=== PATIENT | male | born 1995 | race Two or more races ===

== ENCOUNTER 2016-12-31 15:06 | Inpatient (IN) | payer OTHER ==
[2016-12-31 17:03] VITALS: BMI 22.6
--- NOTE | 2016-12-31 18:54 | HP ---
CIWA Score - CIWA Score Nausea/Vomitin Muscle Tremors: 3 Anxiety: 3 Agitation: 3 Paroxysmal Sweats: 2 Orientation: 0-Oriented Tacttile Disturbances: 2-Mild Itch/Numbness/Burn Auditory Disturbances: 2-Mild Harshness/Frighten Visual Disturbances: 2-Mild Sensitivity Headache: 2-Mild CIWA-Ar Total Score: 22 Admission ROS BHS - HPI Chief Complaint: i need help to stop drinking alcohol and marijuana Allergies/Adverse Reactions: Allergies Allergy/AdvReac Type Severity Reaction Status Date / Time No Known Allergies Allergy Verified 12/31/16 17:10 History of Present Illness: this 21 years old mlae with alcohol and marijuana dependence,seeking help to stop,never been in detox before nicotine dependence insomnia weight loss Exam Limitations: No Limitations - Ebola screening Have you traveled outside of the country in the last 21 days: No Have you been sick,other than usual withdrawal symptoms: No - Review of Systems Constitutional: Loss of Appetite, Malaise, Night Sweats, Changes in sleep, Weakness, Unintentional Wgt. Loss EENT: reports: Nose Congestion Respiratory: reports: No Symptoms reported GI: reports: Nausea, Vomiting, Abdominal cramping : reports: No Symptoms Reported Musculoskeletal: reports: Back Pain, Muscle Pain Integumentary: reports: Dryness Neuro: reports: Headache, Tremors Endocrine: reports: No Symptoms Reported Hematology: reports: No Symptoms Reported Psychiatric: reports: No Sypmtoms Reported (insomnia), Mood/Affect Appropiate, other Patient History - Patient Medical History Hx Anemia: No Hx Asthma: No Hx Chronic Obstructive Pulmonary Disease (COPD): No Hx Cancer: No Hx Cardiac Disorders: No Hx Congestive Heart Failure: No Hx Hypertension: No Hx Hypercholesterolemia: No Hx Pacemaker: No HX Cerebrovascular Accident: No Hx Seizures: No Hx Diabetes: No Hx Gastrointestinal Disorders: No Hx Liver Disease: No Hx Genitourinary Disorders: No Hx Sexually Transmitted Disorders: No Hx Renal Disease (ESRD): No Hx Thyroid Disease: No Hx Human Immunodeficiency Virus (HIV): (never been tested ,would like to be tested) Hx Hepatitis C: No Hx Depression: No Hx Suicide Attempt: No Hx Bipolar Disorder: No Hx Schizophrenia: No Other Medical History: insomnia,no suicidal,no homicidal - Patient Surgical History Past Surgical History: No Hx Neurologic Surgery: No Hx Cataract Extraction: No Hx Cardiac Surgery: No Hx Lung Surgery: No Hx Breast Surgery: No Hx Breast Biopsy: No Hx Abdominal Surgery: No Hx Appendectomy: No Hx Cholecystectomy: No Hx Genitourinary Surgery: No Hx Section: No Hx Orthopedic Surgery: No Anesthesia Reaction: No - PPD History Previous Implant?: Yes Documented Results: Negative w/o proof Implanted On Prior [facility] Admission?: No PPD to be Administered?: Yes - Smoking Cessation Smoking history: Current every day smoker Have you smoked in the past 12 months: Yes Aproximately how many cigarettes per day: 20 Hx Chewing Tobacco Use: No Initiated information on smoking cessation: No 'Breaking Loose' booklet given: 12/31/16 - Substance & Tx. History Hx Alcohol Use: Yes Hx Substance Use: Yes Substance Use Type: Alcohol, Marijuana Hx Substance Use Treatment: No - Substances Abused Alcohol-vodka/beer Route: Oral Frequency: Daily Amount used: 1 pt./3-4 (16 oz.) Age of first use: 16 Date of Last Use: 12/31/16 Marijuana Route: Smoking Frequency: Daily Amount used: $20-30 Age of first use: 14 Date of Last Use: 12/30/16 Family Disease History - Family Disease History Family History: Denies Admission Physical Exam BHS - Vital Signs Vital Signs: Vital Signs - 24 hr 12/31/16 16:59 Temperature 98.2 F Pulse Rate 78 Respiratory 18 Rate Blood Pressure 124/70 - Physical General Appearance: Yes: Moderate Distress, Tremorous, Irritable, Anxious HEENTM: Yes: Normal ENT Inspection, JO, Pharynx Normal Respiratory: Yes: Lungs Clear, Normal Breath Sounds, No Respiratory Distress Neck: Yes: Within Normal Limits, Supple, Trachea in good position Breast: Yes: Within Normal Limits Cardiology: Yes: Within Normal Limits, Regular Rhythm, Regular Rate, S1, S2 Abdominal: Yes: Within Normal Limits, Normal Bowel Sounds, Non Tender, Flat, Soft Genitourinary: Yes: Within Normal Limits Back: Yes: Within Normal Limits, Normal Inspection, Muscle Spasm Musculoskeletal: Yes: Back pain, Muscle Pain Extremities: Yes: Tremors Neurological: Yes: energy economist II-XII NML intact, Fully Oriented, Alert, Motor Strength 5/5 Integumentary: Yes: Dry Lymphatic: Yes: Within Normal Limits - Diagnostic (1) Alcohol dependence with uncomplicated withdrawal Current Visit: Yes Status: Acute (2) Cannabis dependence Current Visit: Yes Status: Acute (3) Insomnia Current Visit: Yes Status: Acute (4) Nicotine dependence Current Visit: Yes Status: Acute Cleared for Admission [facility] - Detox or Rehab [facility] Level of Care: Medically Managed Detox Regimen/Protocol: Librium [facility] Breath Alcohol Content Breath Alcohol Content: 0 Urine Drug Screen - Results Drug Screen Negative: No Urine Drug Screen Results: THC-Marijuana
[2016-12-31] MEDS ORDERED: P-EPHED 60MG/TRIPROLIDI 2.5MG TABLET PO PRN (19:02)
[2016-12-31] MEDS ORDERED: hydrOXYzine PAMOATE 50 MG CAPSULE (FP) PO PRN (19:02)
[2016-12-31] MEDS ORDERED: MAG HYDROX/AL HYDROX/SIMETH 30 ML UNIT-DOSE CUP PO PRN (19:02)
[2016-12-31] MEDS ORDERED: LOPERAMIDE HCL 2 MG CAPSULE PO PRN (19:02)
[2016-12-31] MEDS ORDERED: ACETAMINOPHEN 325 MG TABLET (FP) PO PRN (19:02)
[2016-12-31] MEDS ORDERED: IBUPROFEN 400 MG TABLET (FP) PO PRN (19:02)
[2016-12-31] MEDS ORDERED: guaiFENesin/D-METHORPHAN HB 10 ML UNIT-DOSE CUPS PO PRN (19:02)
[2016-12-31] MEDS ORDERED: MENTHOL/PHENOL 1 EACH UD MM PRN (19:02)
[2016-12-31] MEDS ORDERED: chlordiazePOXIDE HCL 25 MG CAPSULE PO PRN (19:02)
[2016-12-31] MEDS ORDERED: chlordiazePOXIDE HCL 25 MG CAPSULE PO ONE (19:02)
[2016-12-31] MEDS ORDERED: MAGNESIUM HYDROX 2400MG/30ML ORAL SUSPENSION 30 ML CUP PO PRN (19:02)
[2016-12-31] MEDS ORDERED: MAGNESIUM CITRATE 300 ML BOTTLE PO PRN (19:02)
[2016-12-31] MEDS: NICOTINE 21 MG/24 HOURS TOPICAL PATCH TD SCH (20:22)
[2016-12-31] MEDS: chlordiazePOXIDE HCL 25 MG CAPSULE PO SCH (22:17)
[2016-12-31] MEDS: THIAMINE HCL 100 MG TABLET (FP) PO SCH (22:17)
[2016-12-31 23:29] LABS: URINE APPEARANCE CLEAR; URINE BILIRUBIN NEGATIVE (NEGATIVE); URINE BLOOD NEGATIVE (NEGATIVE); URINE COLOR STRAW; URINE GLUCOSE (UA) NEGATIVE (NEGATIVE); URINE KETONE NEGATIVE (NEGATIVE); URINE LEUK ESTERASE NEGATIVE (NEGATIVE); URINE NITRITE NEGATIVE (NEGATIVE); URINE PROTEIN NEGATIVE (NEGATIVE); URINE UROBILINOGEN NEGATIVE mg/dL (0.2-1.0)
[2017-01-01] MEDS: chlordiazePOXIDE HCL 25 MG CAPSULE PO SCH ×4 (05:11→22:09)
--- NOTE | 2017-01-01 08:46 | CONSULT ---
[facility] Psychiatric Consult - Data Date of interview: 01/01/17 Admission source: [facility] Identifying data: This is 21 years old male with no psychiatric hospitalization history intoxicated with: Alcohol and Nicotine Substance Abuse History: Smoking history: Current every day smoker. Have you smoked in the past 12 months: Yes. Aproximately how many cigarettes per day: 20. Hx Chewing Tobacco Use: No. Initiated information on smoking cessation: No. 'Breaking Loose' booklet given: 12/31/16. - Substance & Tx. History. Hx Alcohol Use: Yes. Hx Substance Use: Yes. Substance Use Type: Alcohol, Marijuana. Hx Substance Use Treatment: No. - Substances Abused. Alcohol- vodka/beer. Route: Oral. Frequency: Daily. Amount used: 1 pt./3-4 (16 oz.). Age of first use: 16. Date of Last Use: 12/31/16. Marijuana. Route: Smoking. Frequency: Daily. Amount used: $20-30. Age of first use: 14. Date of Last Use: 12/30/16 Medical History: Denies any significant medical problem Psychiatric History: Denies past psychiatric history Physical/Sexual Abuse/Trauma History: Denies Additional Comment: Observation. Detox Unit Care Protocol Mental Status Exam - Mental Status Exam Alert and Oriented to: Person Cognitive Function: Fair Patient Appearance: Well Groomed Mood: Apprehensive Affect: Mood Congruent Patient Behavior: Cooperative Speech Pattern: Appropriate Voice Loudness: Normal Thought Process: Goal Oriented Thought Disorder: Being Controlled Hallucinations: Denies Suicidal Ideation: Denies Homicidal Ideation: Denies Insight/Judgement: Fair Sleep: Difficulty falling asleep Appetite: Fair Muscle strength/Tone: Normal Gait/Station: Normal Additional Comments: Observation. Detox Unit Care Protocol Psychiatric Findings - Problem List ([place] 1, 2,3) (1) Alcohol dependence with uncomplicated withdrawal Current Visit: Yes Status: Acute (2) Cannabis dependence Current Visit: Yes Status: Acute (3) Insomnia Current Visit: Yes Status: Acute (4) Nicotine dependence Current Visit: Yes Status: Acute (5) Drug-induced mood disorder Current Visit: Yes Status: Suspected - Initial Treatment Plan Initial Treatment Plan: Observation. Detox Unit Care Protocol
[2017-01-01] MEDS: NICOTINE 21 MG/24 HOURS TOPICAL PATCH TD SCH (10:09)
[2017-01-01] MEDS: PRENATAL VITAMINS W/ FOLIC ACID TABLET (FP) PO SCH (10:09)
[2017-01-01 10:14] LABS: MCH 26.4 pg (25.7-33.7); MCHC 32.9 g/dl (32.0-35.9); MEAN CELL VOLUME 80.2 fl (80-96); MEAN PLT VOLUME 8.4 fl (7.5-11.1); PLATELET COUNT 213 K/MM3 (134-434); RDW 14.2 % (11.9-15.9); WHITE BLOOD COUNT 7.9 K/mm3 (4.0-10.0)
[2017-01-01 10:39] LABS: ALBUMIN 3.4 g/dl (3.4-5.0); ANION GAP 9 (8-16); CO2 29 mmol/L (21-32); GLUCOSE,RANDOM 81 mg/dL (74-106)
[2017-01-01 10:44] LABS: ALK PHOS 65 U/L (45-117); BILIRUBIN,TOTAL 0.4 mg/dL (0.2-1.0); CREATININE 0.6 mg/dL (0.7-1.3); SGOT/AST 15 U/L (15-37); SGPT/ALT 22 U/L (12-78); TOT PROT 6.4 g/dl (6.4-8.2)
[2017-01-01 11:28] LABS: HIV 1 & 2 AB NEGATIVE; HIV 1 AGp24 NEGATIVE
--- NOTE | 2017-01-01 12:06 | PN ---
[facility] CIWA - CIWA Score Nausea/Vomitin-No Nausea/No Vomiting Muscle Tremors: 4-Moderate,w/Arms Extend Anxiety: 4-Mod. Anxious/Guarded Agitation: 4-Moderately Restless Paroxysmal Sweats: 1-Minimal Palms Moist Orientation: 0-Oriented Tacttile Disturbances: 3-Moderate Itch/Numb/Burn Auditory Disturbances: 0-None Visual Disturbances: 0-None Headache: 0-None Present CIWA-Ar Total Score: 16 BHS Progress Note (SOAP) Subjective: SLIGHT ANXIETY,SWEATS,TREMORS. Objective: 01/01/17 12:30 Vital Signs Temperature 96.7 F L 01/01/17 09:26 Pulse Rate 96 H 01/01/17 09:26 Respiratory Rate 16 01/01/17 09:26 Blood Pressure 94/67 01/01/17 09:26 O2 Sat by Pulse Oximetry (%) Laboratory Last Values WBC 7.9 K/mm3 (4.0-10.0) 01/01/17 06:30 RBC 5.68 M/mm3 (4.00-5.60) H 01/01/17 06:30 Hgb 15.0 GM/dL (11.7-16.9) 01/01/17 06:30 Hct 45.6 % (35.4-49) 01/01/17 06:30 MCV 80.2 fl (80-96) 01/01/17 06:30 MCH 26.4 pg (25.7-33.7) 01/01/17 06:30 MCHC 32.9 g/dl (32.0-35.9) 01/01/17 06:30 RDW 14.2 % (11.9-15.9) 01/01/17 06:30 Plt Count 213 K/MM3 (134-434) 01/01/17 06:30 MPV 8.4 fl (7.5-11.1) 01/01/17 06:30 Sodium 142 mmol/L (136-145) 01/01/17 06:30 Potassium 3.9 mmol/L (3.5-5.1) 01/01/17 06:30 Chloride 104 mmol/L (98-107) 01/01/17 06:30 Carbon Dioxide 29 mmol/L (21-32) 01/01/17 06:30 Anion Gap 9 (8-16) 01/01/17 06:30 BUN 11 mg/dL (7-18) 01/01/17 06:30 Creatinine 0.6 mg/dL (0.7-1.3) L 01/01/17 06:30 Creat Clearance w eGFR > 60 (>60) 01/01/17 06:30 Random Glucose 81 mg/dL (74-106) 01/01/17 06:30 Calcium 9.0 mg/dL (8.5-10.1) 01/01/17 06:30 Total Bilirubin 0.4 mg/dL (0.2-1.0) 01/01/17 06:30 AST 15 U/L (15-37) 01/01/17 06:30 ALT 22 U/L (12-78) 01/01/17 06:30 Alkaline Phosphatase 65 U/L (45-117) 01/01/17 06:30 Total Protein 6.4 g/dl (6.4-8.2) 01/01/17 06:30 Albumin 3.4 g/dl (3.4-5.0) 01/01/17 06:30 Urine Color Straw 12/31/16 20:00 Urine Appearance Clear 12/31/16 20:00 Urine pH 7.0 (5.0-8.0) 12/31/16 20:00 Ur Specific [place] 1.020 (1.005-1.025) 12/31/16 20:00 Urine Protein Negative (NEGATIVE) 12/31/16 20:00 Urine Glucose (UA) Negative (NEGATIVE) 12/31/16 20:00 Urine Ketones Negative (NEGATIVE) 12/31/16 20:00 Urine Blood Negative (NEGATIVE) 12/31/16 20:00 Urine Nitrite Negative (NEGATIVE) 12/31/16 20:00 Urine Bilirubin Negative (NEGATIVE) 12/31/16 20:00 Urine Urobilinogen Negative mg/dL (0.2-1.0) 12/31/16 20:00 Ur Leukocyte Esterase Negative (NEGATIVE) 12/31/16 20:00 RPR Titer Nonreactive (NONREACTIVE) 01/01/17 06:30 HIV 1&2 Antibody Screen Negative 01/01/17 06:30 HIV P24 Antigen Negative 01/01/17 06:30 Assessment: 01/01/17 12:31 WITHDRAWAL SX Plan: CONTINUE DETOX
--- NOTE | 2017-01-01 12:21 | EKG ---
Test Reason : Blood Pressure : / mmHG Vent. Rate : 073 BPM Atrial Rate : 073 BPM P-R Int : 132 ms QRS Dur : 090 ms QT Int : 368 ms P-R-T Axes : 035 066 048 degrees QTc Int : 405 ms SINUS RHYTHM WITH PREMATURE ATRIAL COMPLEXES EARLY REPOLARIZATION OTHERWISE NORMAL ECG NO PREVIOUS ECGS AVAILABLE Confirmed by ALEJANDRA REDDING, LINDA ([id number]) on 01/01/2017 12:21:44 PM Referred By: Confirmed By:LINDA ROBERTS MD
[2017-01-01] MEDS: THIAMINE HCL 100 MG TABLET (FP) PO SCH (22:08)
[2017-01-01] MEDS: diphenhydrAMINE HCL 50 MG CAPSULE PO PRN (22:10)
[2017-01-02] MEDS: chlordiazePOXIDE HCL 25 MG CAPSULE PO SCH ×3 (05:19→17:31)
--- NOTE | 2017-01-02 10:42 | PN ---
S CIWA - CIWA Score Nausea/Vomitin-No Nausea/No Vomiting Muscle Tremors: 4-Moderate,w/Arms Extend Anxiety: 4-Mod. Anxious/Guarded Agitation: 4-Moderately Restless Paroxysmal Sweats: 1-Minimal Palms Moist Orientation: 0-Oriented Tacttile Disturbances: 3-Moderate Itch/Numb/Burn Auditory Disturbances: 0-None Visual Disturbances: 0-None BHS Progress Note (SOAP) Subjective: DECREASED ANXIETY,TREMORS,IRRITABILITY. DETOX PROCEEDING WELL. Objective: 01/02/17 10:42 Vital Signs Temperature 96.4 F L 01/02/17 09:47 Pulse Rate 96 H 01/02/17 09:47 Respiratory Rate 18 01/02/17 09:47 Blood Pressure 93/66 01/02/17 09:47 O2 Sat by Pulse Oximetry (%) Laboratory Last Values WBC 7.9 K/mm3 (4.0-10.0) 01/01/17 06:30 RBC 5.68 M/mm3 (4.00-5.60) H 01/01/17 06:30 Hgb 15.0 GM/dL (11.7-16.9) 01/01/17 06:30 Hct 45.6 % (35.4-49) 01/01/17 06:30 MCV 80.2 fl (80-96) 01/01/17 06:30 MCH 26.4 pg (25.7-33.7) 01/01/17 06:30 MCHC 32.9 g/dl (32.0-35.9) 01/01/17 06:30 RDW 14.2 % (11.9-15.9) 01/01/17 06:30 Plt Count 213 K/MM3 (134-434) 01/01/17 06:30 MPV 8.4 fl (7.5-11.1) 01/01/17 06:30 Sodium 142 mmol/L (136-145) 01/01/17 06:30 Potassium 3.9 mmol/L (3.5-5.1) 01/01/17 06:30 Chloride 104 mmol/L (98-107) 01/01/17 06:30 Carbon Dioxide 29 mmol/L (21-32) 01/01/17 06:30 Anion Gap 9 (8-16) 01/01/17 06:30 BUN 11 mg/dL (7-18) 01/01/17 06:30 Creatinine 0.6 mg/dL (0.7-1.3) L 01/01/17 06:30 Creat Clearance w eGFR > 60 (>60) 01/01/17 06:30 Random Glucose 81 mg/dL (74-106) 01/01/17 06:30 Calcium 9.0 mg/dL (8.5-10.1) 01/01/17 06:30 Total Bilirubin 0.4 mg/dL (0.2-1.0) 01/01/17 06:30 AST 15 U/L (15-37) 01/01/17 06:30 ALT 22 U/L (12-78) 01/01/17 06:30 Alkaline Phosphatase 65 U/L (45-117) 01/01/17 06:30 Total Protein 6.4 g/dl (6.4-8.2) 01/01/17 06:30 Albumin 3.4 g/dl (3.4-5.0) 01/01/17 06:30 Urine Color Straw 12/31/16 20:00 Urine Appearance Clear 12/31/16 20:00 Urine pH 7.0 (5.0-8.0) 12/31/16 20:00 Ur Specific [place] 1.020 (1.005-1.025) 12/31/16 20:00 Urine Protein Negative (NEGATIVE) 12/31/16 20:00 Urine Glucose (UA) Negative (NEGATIVE) 12/31/16 20:00 Urine Ketones Negative (NEGATIVE) 12/31/16 20:00 Urine Blood Negative (NEGATIVE) 12/31/16 20:00 Urine Nitrite Negative (NEGATIVE) 12/31/16 20:00 Urine Bilirubin Negative (NEGATIVE) 12/31/16 20:00 Urine Urobilinogen Negative mg/dL (0.2-1.0) 12/31/16 20:00 Ur Leukocyte Esterase Negative (NEGATIVE) 12/31/16 20:00 RPR Titer Nonreactive (NONREACTIVE) 01/01/17 06:30 HIV 1&2 Antibody Screen Negative 01/01/17 06:30 HIV P24 Antigen Negative 01/01/17 06:30 Assessment: 01/02/17 10:42 WITHDRAWAL SX Plan: CONTINUE DETOX
[2017-01-02] MEDS: PRENATAL VITAMINS W/ FOLIC ACID TABLET (FP) PO SCH (10:44)
[2017-01-02] MEDS: NICOTINE 21 MG/24 HOURS TOPICAL PATCH TD SCH (10:44)
[2017-01-02] MEDS: chlordiazePOXIDE 5 MG CAPSULE PO SCH (22:08)
[2017-01-02] MEDS: THIAMINE HCL 100 MG TABLET (FP) PO SCH (22:08)
[2017-01-02] MEDS: diphenhydrAMINE HCL 50 MG CAPSULE PO PRN (22:09)
[2017-01-03] MEDS: chlordiazePOXIDE 5 MG CAPSULE PO SCH ×3 (05:53→17:31)
[2017-01-03] MEDS: NICOTINE 21 MG/24 HOURS TOPICAL PATCH TD SCH (10:08)
[2017-01-03] MEDS: PRENATAL VITAMINS W/ FOLIC ACID TABLET (FP) PO SCH (10:08)
--- NOTE | 2017-01-03 10:47 | PN ---
BHS Progress Note (SOAP) Subjective: DECREASED ANXIETY,SWEATS,TREMORS. Objective: 01/03/17 10:46 Vital Signs Temperature 96.7 F L 01/03/17 09:11 Pulse Rate 83 01/03/17 09:11 Respiratory Rate 20 01/03/17 09:11 Blood Pressure 97/65 01/03/17 09:11 O2 Sat by Pulse Oximetry (%) Laboratory Last Values WBC 7.9 K/mm3 (4.0-10.0) 01/01/17 06:30 RBC 5.68 M/mm3 (4.00-5.60) H 01/01/17 06:30 Hgb 15.0 GM/dL (11.7-16.9) 01/01/17 06:30 Hct 45.6 % (35.4-49) 01/01/17 06:30 MCV 80.2 fl (80-96) 01/01/17 06:30 MCH 26.4 pg (25.7-33.7) 01/01/17 06:30 MCHC 32.9 g/dl (32.0-35.9) 01/01/17 06:30 RDW 14.2 % (11.9-15.9) 01/01/17 06:30 Plt Count 213 K/MM3 (134-434) 01/01/17 06:30 MPV 8.4 fl (7.5-11.1) 01/01/17 06:30 Sodium 142 mmol/L (136-145) 01/01/17 06:30 Potassium 3.9 mmol/L (3.5-5.1) 01/01/17 06:30 Chloride 104 mmol/L (98-107) 01/01/17 06:30 Carbon Dioxide 29 mmol/L (21-32) 01/01/17 06:30 Anion Gap 9 (8-16) 01/01/17 06:30 BUN 11 mg/dL (7-18) 01/01/17 06:30 Creatinine 0.6 mg/dL (0.7-1.3) L 01/01/17 06:30 Creat Clearance w eGFR > 60 (>60) 01/01/17 06:30 Random Glucose 81 mg/dL (74-106) 01/01/17 06:30 Calcium 9.0 mg/dL (8.5-10.1) 01/01/17 06:30 Total Bilirubin 0.4 mg/dL (0.2-1.0) 01/01/17 06:30 AST 15 U/L (15-37) 01/01/17 06:30 ALT 22 U/L (12-78) 01/01/17 06:30 Alkaline Phosphatase 65 U/L (45-117) 01/01/17 06:30 Total Protein 6.4 g/dl (6.4-8.2) 01/01/17 06:30 Albumin 3.4 g/dl (3.4-5.0) 01/01/17 06:30 Urine Color Straw 12/31/16 20:00 Urine Appearance Clear 12/31/16 20:00 Urine pH 7.0 (5.0-8.0) 12/31/16 20:00 Ur Specific [place] 1.020 (1.005-1.025) 12/31/16 20:00 Urine Protein Negative (NEGATIVE) 12/31/16 20:00 Urine Glucose (UA) Negative (NEGATIVE) 12/31/16 20:00 Urine Ketones Negative (NEGATIVE) 12/31/16 20:00 Urine Blood Negative (NEGATIVE) 12/31/16 20:00 Urine Nitrite Negative (NEGATIVE) 12/31/16 20:00 Urine Bilirubin Negative (NEGATIVE) 12/31/16 20:00 Urine Urobilinogen Negative mg/dL (0.2-1.0) 12/31/16 20:00 Ur Leukocyte Esterase Negative (NEGATIVE) 12/31/16 20:00 RPR Titer Nonreactive (NONREACTIVE) 01/01/17 06:30 HIV 1&2 Antibody Screen Negative 01/01/17 06:30 HIV P24 Antigen Negative 01/01/17 06:30 Assessment: 01/03/17 10:46 WITHDRAWAL SX Plan: CONTINUE DETOX
[2017-01-03] MEDS: chlordiazePOXIDE HCL 10 MG CAPSULE PO SCH (22:17)
[2017-01-03] MEDS: THIAMINE HCL 100 MG TABLET (FP) PO SCH (22:17)
[2017-01-03] MEDS: diphenhydrAMINE HCL 50 MG CAPSULE PO PRN (22:18)
[2017-01-04] MEDS: chlordiazePOXIDE HCL 10 MG CAPSULE PO SCH (05:38)
[2017-01-04 06:08] VITALS: BP 91/62; PULSE 74; TEMP 97.3
--- NOTE | 2017-01-04 13:15 | DS ---
[facility] Detox Discharge Summary Admission Date: 12/31/16 Discharge Date: 01/04/17 - History Present History: Alcohol Dependence Additional Comments: PATIENT GOING HOME AT THIS TIME. INFORMATION ON 12-STEP / AA SUPPORT GROUPS PROVIDED FOR FOLLOW-UP FOR AFTERCARE. Pertinent Past History: Insomnia. - Physical Exam Results Vital Signs: Vital Signs Temperature 97.3 F L 01/04/17 06:07 Pulse Rate 74 01/04/17 06:07 Respiratory Rate 18 01/04/17 06:07 Blood Pressure 91/62 01/04/17 06:07 O2 Sat by Pulse Oximetry (%) Pertinent Admission Physical Exam Findings: WITHDRAWAL SYMPTOMS. Laboratory Tests 12/31/16 01/01/17 01/01/17 20:00 06:30 06:30 WBC 7.9 RBC 5.68 H Hgb 15.0 Hct 45.6 MCV 80.2 MCH 26.4 MCHC 32.9 RDW 14.2 Plt Count 213 MPV 8.4 Sodium 142 Potassium 3.9 Chloride 104 Carbon Dioxide 29 Anion Gap 9 BUN 11 Creatinine 0.6 L Creat Clearance w eGFR > 60 Random Glucose 81 Calcium 9.0 Total Bilirubin 0.4 AST 15 ALT 22 Alkaline Phosphatase 65 Total Protein 6.4 Albumin 3.4 Urine Color Straw Urine Appearance Clear Urine pH 7.0 Ur Specific [place] 1.020 Urine Protein Negative Urine Glucose (UA) Negative Urine Ketones Negative Urine Blood Negative Urine Nitrite Negative Urine Bilirubin Negative Urine Urobilinogen Negative Ur Leukocyte Esterase Negative RPR Titer HIV 1&2 Antibody Screen HIV P24 Antigen 01/01/17 01/01/17 06:30 06:30 WBC RBC Hgb Hct MCV MCH MCHC RDW Plt Count MPV Sodium Potassium Chloride Carbon Dioxide Anion Gap BUN Creatinine Creat Clearance w eGFR Random Glucose Calcium Total Bilirubin AST ALT Alkaline Phosphatase Total Protein Albumin Urine Color Urine Appearance Urine pH Ur Specific [place] Urine Protein Urine Glucose (UA) Urine Ketones Urine Blood Urine Nitrite Urine Bilirubin Urine Urobilinogen Ur Leukocyte Esterase RPR Titer Nonreactive HIV 1&2 Antibody Screen Negative HIV P24 Antigen Negative LABS NOTED. - Treatment Hospital Course: Detox Protocol Followed, Detoxed Safely, Responded well, Discharged Condition Good Patient has Accepted a Rehab Referral to: PATIENT GOING HOME; 12-STEP/AA SUPPORT GROUP INOFRMATION PROVIDED. - Medication Discharge Medications: Ambulatory Orders NK [No Known Home Medication] 12/31/16 - Diagnosis (1) Alcohol dependence with uncomplicated withdrawal Status: Acute (2) Cannabis dependence Status: Acute (3) Insomnia Status: Acute Qualifiers: Insomnia type: unspecified Qualified Code(s): G47.00 - Insomnia, unspecified (4) Nicotine dependence Status: Chronic Qualifiers: Nicotine product type: cigarettes Substance use status: in withdrawal Qualified Code(s): F17.213 - Nicotine dependence, cigarettes, with withdrawal (5) Drug-induced mood disorder Status: Suspected - AMA Did Patient Leave Against Medical Advice: No
== END 2017-01-04 09:05 | disposition home or self-care (01) | DRG 775 ==
LOC: YASAS 15:06 → Y3N 17:41
PROVIDERS: ADMIT Internal Medicine; ATTEND Internal Medicine
PROC: HZ2ZZZZ Detoxification Services for Substance Abuse Treatment (ICD-10-PCS; principal; 2017-01-04)
DX: F10.230 Alcohol dependence with withdrawal, uncomplicated (principal); F12.20 Cannabis dependence, uncomplicated; F17.210 Nicotine dependence, cigarettes, uncomplicated; F19.24 Other psychoactive substance dependence with psychoactive substance-induced mood disorder; G47.00 Insomnia, unspecified
CPT/HCPCS: 36415; 80053; 81003; 85027; 86593; 87389; 93005; 93010